=== PATIENT | male | born 1980 | race Caucasian/White ===

== ENCOUNTER 2019-10-23 20:43 | Emergency (ER) | payer SELFPAY ==
[~2019-10-23] VITALS: Ht 180.3 cm; Wt 117.9 kg
[2019-10-23 20:48] VITALS: BP_SYST 127
--- NOTE | 2019-10-23 20:50 | NUR ---
Patient to ER bed H1 for evaluation. Side rails up.
--- NOTE | 2019-10-23 20:50 | NUR ---
Pt brought in by [facility] [place] for medical clearance. Pt is coming to ED for in custody medical clearance prior to booking at detention facility. Pt states he has history of hypertension, and wanted to be evaluated prior to booking. Pt asymptomatic, no s/s of distresd upon presentation to the ED. Pt Awake, alert, oriented x4. Pt denies chest pain, nausea, vomiting, diarrhea, shortness of breath. Pt denies any other medical complaint at this time.VSS
--- NOTE | 2019-10-23 21:20 | NUR ---
ER at bedside examining patient.
[2019-10-23 21:30] VITALS: BP_SYST 127
--- NOTE | 2019-10-23 21:30 | NUR ---
Patient given written and verbal discharge instructions and verbalizes understanding. ER MD discussed with patient the results and treatment provided. Patient in stable condition. ID arm band removed. Pt discharged in custody of [facility] no rx given. Patient educated on pain management and to follow up with PMD. Pain Scale 0/10. Opportunity for questions provided and answered.
== END 2019-10-23 21:30 ==
LOC: SED 20:43
DX: I10 Essential (primary) hypertension (principal); R10.9 Unspecified abdominal pain; F12.10 Cannabis abuse, uncomplicated
CPT/HCPCS: 99283